=== PATIENT | male | born 1990 | race Caucasian/White ===

== ENCOUNTER 2017-02-23 17:08 | Emergency (ER) | payer SELFPAY ==
[2017-02-23] MEDS ORDERED: MORPHINE SULFATE INJ 10 MG/ML VIAL IV ONE (17:18)
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
[2017-02-23] MEDS ORDERED: cefTRIAXone SODIUM 1 GM in SODIUM CHL 0.9% 50ML MIN-BAG+ 50 ML IVPB ONE (18:55)
[2017-02-23] MEDS ORDERED: KETOROLAC TROMETHAMINE INJ 30 MG/ML VIAL IM ONE (19:02)
[2017-02-23] MEDS ORDERED: SULFA/TRIMETH 800/160 (DS) TAB 1 EA TAB PO ONE (19:03)
[2017-02-23] MEDS ORDERED: ACETAMINOPHEN-CAFF-BUTALBITAL 1 EA TAB PO ONE (19:03)
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
[2017-02-23 19:43] VITALS: BP 145/70; TEMP 98.2; O2SAT 100
== END 2017-02-23 19:25 | disposition home or self-care (01) ==
LOC: EDBD 17:08 → ER 17:08
DX: S02.609A Fracture of mandible, unspecified, initial encounter for closed fracture (principal); S06.0X9A Concussion with loss of consciousness of unspecified duration, initial encounter; R56.9 Unspecified convulsions; V57.5XXA Driver of pick-up truck or van injured in collision with fixed or stationary object in traffic accident, initial encounter; Y92.410 Unspecified street and highway as the place of occurrence of the external cause; Z87.891 Personal history of nicotine dependence